=== PATIENT | male | born 1975 | race Caucasian/White ===

== ENCOUNTER 2016-10-17 10:54 | Emergency (ER) | payer MEDICAID ==
[~2016-10-17] VITALS: Ht 175.3 cm; Wt 81.6 kg
[2016-10-17 12:32] VITALS: BP 135/101
[2016-10-17] MEDS ORDERED: HYDROcodone-ACET 10/325MG TAB PO ONE (13:45)
== END 2016-10-17 13:57 | disposition home or self-care (01) ==
LOC: ER 10:55
DX: K04.7 Periapical abscess without sinus (principal); F17.210 Nicotine dependence, cigarettes, uncomplicated; F12.10 Cannabis abuse, uncomplicated; J45.909 Unspecified asthma, uncomplicated

== ENCOUNTER 2023-10-04 09:24 | Inpatient (IN) | payer MEDICAID ==
[~2023-10-04] VITALS: Ht 177.8 cm; Wt 87.4 kg
[2023-10-04 10:41] LABS: Basophils # (auto) 0.1 10 ^3/uL (0-0.2); Basophils % (auto) 1.4 % (0.0-2.0); Eosinophils # (auto) 0.3 10 ^3/uL (0-0.8); Eosinophils % (auto) 5.1 % (0.0-7.0); Hematocrit 44.1 % (41.0-53.0); Lymphocytes % (auto) 29.3 % (10.0-50.0); Mean Corpuscular Hemoglobin 31.1 pg (28.0-32.0); Mean Corpuscular Hgb Conc. 34.1 g/dL (32.0-36.0); Mean Corpuscular Volume 91.2 fL (80.0-100.0); Monocytes # (auto) 0.6 10 ^3/uL (0-1.3); Monocytes % (auto) 9.1 % (0.0-12.0); Neutrophils # (auto) 3.8 10 ^3/uL (1.6-8.6); Neutrophils % (auto) 55.1 % (37.0-80.0); Red Blood Cells 4.84 10^6/uL (4.5-5.90); Red Cell Distribution Width 13.1 % (11.8-14.3); White Blood Cell 6.8 10^3/uL (4.4-10.8)
[2023-10-04 11:04] LABS: Chloride 109 mmol/L (98-107); Potassium 4.2 mmol/L (3.5-5.1); Sodium 140 mmol/L (136-145)
[2023-10-04 11:05] LABS: Anion Gap 2 (5-15); Carbon Dioxide 29 mmol/L (20-30)
[2023-10-04 11:06] LABS: Calcium 9.5 mg/dL (8.7-10.4)
[2023-10-04 11:10] LABS: Glucose 110 mg/dL (74-106)
[2023-10-04 11:11] LABS: BUN/Creatinine Ratio 7.4 (10.0-20.0); Blood Urea Nitrogen 7 mg/dL (9-23); Lipase 35 U/L (12-53)
[2023-10-04] MEDS: ETOMIDATE (2MG/ML) 20ML VIAL IV ONE (13:05)
[2023-10-04] MEDS: ROCURONIUM 10MG/ML 10ML VIAL IV ONE (13:05)
[2023-10-04] MEDS ORDERED: ONDANSETRON HCL 4 MG/2 ML VIAL IV PRN (16:15)
[2023-10-04] MEDS ORDERED: MORPHINE SULFATE INJ 2 MG/ml SYRG IV PRN (16:15)
[2023-10-04] MEDS: SODIUM CHLORIDE 0.9% 1,000 ML IV SCH ×2 (18:39→20:00)
[2023-10-04 22:23] VITALS: BP 162/88; PULSE 63; RESP 18; TEMP 97.7; O2SAT 98
[2023-10-04 23:38] VITALS: PULSE 63; RESP 18; O2SAT 98
[2023-10-05 01:00] VITALS: BP 127/95; PULSE 53; RESP 18; TEMP 98; O2SAT 99
[2023-10-05 05:00] VITALS: BP 123/76; PULSE 61; RESP 18; TEMP 97.8; O2SAT 99
[2023-10-05 07:10] LABS: Basophils # (auto) 0.1 10 ^3/uL (0-0.2); Eosinophils # (auto) 0.5 10 ^3/uL (0-0.8); Hematocrit 43.3 % (41.0-53.0); Hemoglobin 14.8 g/dL (13.5-17.5); Lymphocytes # (auto) 1.7 10 ^3/uL (0.4-5.4); Lymphocytes % (auto) 27.2 % (10.0-50.0); Mean Corpuscular Hemoglobin 31.1 pg (28.0-32.0); Mean Corpuscular Hgb Conc. 34.2 g/dL (32.0-36.0); Mean Corpuscular Volume 90.7 fL (80.0-100.0); Monocytes # (auto) 0.7 10 ^3/uL (0-1.3); Monocytes % (auto) 10.2 % (0.0-12.0); Neutrophils # (auto) 3.4 10 ^3/uL (1.6-8.6); Neutrophils % (auto) 53.6 % (37.0-80.0); Nucleated Red Blood Cells % 0.1 %; Red Blood Cells 4.78 10^6/uL (4.5-5.90); Red Cell Distribution Width 13.2 % (11.8-14.3); White Blood Cell 6.4 10^3/uL (4.4-10.8)
[2023-10-05 07:19] LABS: Alanine Aminotransferase 33 U/L (7-40); Albumin 3.8 g/dL (3.2-4.8); Alkaline Phosphatase 37 U/L (46-116); Anion Gap 4 (5-15); Aspartate Aminotransferase 19 U/L (13-40); BUN/Creatinine Ratio 8.4 (10.0-20.0); Bilirubin, Total 0.8 mg/dL (0.2-1.0); Blood Urea Nitrogen 7 mg/dL (9-23); Calcium 8.8 mg/dL (8.5-10.1); Carbon Dioxide 25 mmol/L (20-30); Chloride 112 mmol/L (98-107); Glucose 88 mg/dL (74-106); INR 1.11 (0.9-1.15); Partial Thromboplastin Time 32.5 SEC (24.5-34.5); Potassium 4.1 mmol/L (3.5-5.1); Prothrombin Time 11.7 sec (9.3-11.8); Sodium 141 mmol/L (136-145); Total Protein 5.9 g/dL (5.7-8.2)
[2023-10-05 09:00] VITALS: BP 124/74; PULSE 55; RESP 19; TEMP 97.7; O2SAT 97
[2023-10-05 12:30] VITALS: BP 123/77; PULSE 60; RESP 19; TEMP 97.9; O2SAT 98
[2023-10-05] MEDS: ceFAZolin 2 GM/D5W50ml 50 ML IV SCH (13:08)
[2023-10-05 20:00] VITALS: RESP 18
[2023-10-05 21:00] VITALS: BP 124/81; PULSE 56; RESP 20; TEMP 98; O2SAT 97
[2023-10-06] VITALS (7 sets, daily range): BP systolic 108–124; BP diastolic 64–87; PULSE 62–74; RESP 16–22; TEMP 36.6; O2SAT 94–97
[2023-10-06] MEDS ORDERED: SUCCINYLCHOLINE CHLORIDE 20 MG/ML 10ML VIAL IV ONE (06:48)
[2023-10-06] MEDS ORDERED: ROCURONIUM 10MG/ML 10ML VIAL IV ONE (06:48)
[2023-10-06] MEDS ORDERED: KETAMINE 50mg/ML 1ml syringe ONE (06:58)
[2023-10-06] MEDS ORDERED: fentaNYL CITRATE 100 MCG/2 ML VL ONE (06:58)
[2023-10-06] MEDS ORDERED: MIDAZOLAM HCL 2MG/2ML 2ml VIAL (1mg/ml) ONE (06:59)
[2023-10-06] MEDS ORDERED: PROPOFOL 10 MG/ML 20 ML IV ONE (06:59)
[2023-10-06] MEDS ORDERED: NEOSTIGMINE 1 MG/ML INJ (10mg/10ML VIAL) ONE (06:59)
[2023-10-06] MEDS ORDERED: SODIUM CHLORIDE LOCK 10 ML ONE (06:59)
[2023-10-06] MEDS ORDERED: ONDANSETRON HCL 4 MG/2 ML VIAL ONE (06:59)
[2023-10-06] MEDS ORDERED: MEPERIDINE HCL (50 MG/ML) 1 ML VIAL ONE (06:59)
[2023-10-06] MEDS ORDERED: GLYCOPYRROLATE 0.2 MG/ML 1ML VIAL ONE (06:59)
[2023-10-06 07:05] LABS: Calcium 9.2 mg/dL (8.5-10.1); Chloride 112 mmol/L (98-107); Potassium 4.2 mmol/L (3.5-5.1); Sodium 140 mmol/L (136-145)
[2023-10-06 07:06] LABS: Anion Gap 4 (5-15); Carbon Dioxide 24 mmol/L (20-30)
[2023-10-06] MEDS ORDERED: BUPIVACAINE HCL 50 ML ONE (07:10)
[2023-10-06] MEDS ORDERED: LIDOCAINE W/ EPINEPHRINE 1% 20ML VIAL ONE (07:10)
[2023-10-06 07:11] LABS: Glucose 94 mg/dL (74-106)
[2023-10-06 07:13] LABS: BUN/Creatinine Ratio 5.7 (10.0-20.0); Blood Urea Nitrogen < 5 mg/dL (9-23)
[2023-10-06] MEDS ORDERED: fentaNYL CITRATE 100 MCG/2 ML VL IV PRN (07:15)
[2023-10-06] MEDS: METOCLOPRAMIDE HCL 5MG/ml INJ 2ml VIAL IV ONE (07:15)
[2023-10-06] MEDS ORDERED: MORPHINE SULFATE INJ 2 MG/ml SYRG IV PRN (07:15)
[2023-10-06] MEDS ORDERED: HYDROmorphone HCL 2 MG/ML VL/or syr IV PRN (07:15)
[2023-10-06] MEDS ORDERED: LIDOCAINE 1% INJ PF 5ML AMP ONE (07:16)
[2023-10-06] MEDS ORDERED: LIDOCAINE HCL 2% TOP JELLY 5ML TOP ONE (07:16)
[2023-10-06] MEDS: HYDROmorphone HCL 2 MG/ML VL/or syr IV PRN (08:49)
[2023-10-06] MEDS: IBUPROFEN 400 MG TAB PO PRN (11:52)
== END 2023-10-06 18:30 | disposition home or self-care (01) | DRG 227 ==
LOC: ER 09:24 → OVERFLOW 16:19 → WEST WING 22:18
PROVIDERS: ADMIT Nurse Practitioner Family; ATTEND Internal Medicine Geriatric Medicine
PROC: 0WQF0ZZ Repair Abdominal Wall, Open Approach (ICD-10-PCS; principal; 2023-10-06 07:27)
DX: K43.6 Other and unspecified ventral hernia with obstruction, without gangrene (principal); F17.210 Nicotine dependence, cigarettes, uncomplicated; J45.909 Unspecified asthma, uncomplicated; K57.30 Diverticulosis of large intestine without perforation or abscess without bleeding; Z87.09 Personal history of other diseases of the respiratory system
CPT/HCPCS: 36415; 74176; 80048; 80053; 83690; 85025; 85610; 85730; 96360; 96361; 96374; G0378; J0330; J2250; J2405; J2704; J3490